=== PATIENT | male | born 1995 | race African-American/Black ===

== ENCOUNTER 2021-01-27 00:07 | Emergency (ER) | payer OTHER ==
[2021-01-27] MEDS ORDERED: Ketorolac Tromethamine 60 MG/2 ML VIAL ONE (00:41)
== END 2021-01-27 01:00 | disposition still patient (30) ==
LOC: NAV ERS 00:07
DX: M25.561 Pain in right knee (principal); I10 Essential (primary) hypertension; F17.210 Nicotine dependence, cigarettes, uncomplicated; X50.1XXA Overexertion from prolonged static or awkward postures, initial encounter
CPT/HCPCS: 96372; J1885